=== PATIENT | male | born 1975 | race Caucasian/White ===

== ENCOUNTER 2021-12-25 17:23 | Emergency (ER) | payer OTHER ==
[2021-12-25] MEDS ORDERED: Lidocaine 1% 20 ML MDV INJECT ONE (17:56)
[2021-12-25] MEDS ORDERED: Bacitracin Oint 1 GM U/D Packet TOP ONE (18:02)
== END 2021-12-25 18:57 | disposition home or self-care (01) ==
LOC: JP.ED 17:23
DX: S60.450A Superficial foreign body of right index finger, initial encounter (principal); W45.8XXA Other foreign body or object entering through skin, initial encounter
CPT/HCPCS: 99283